=== PATIENT | female | born 1945 | race Caucasian/White ===

== ENCOUNTER 2017-02-26 11:15 | Outpatient (RCR) | payer MEDICARE, OTHER ==
--- NOTE | 2016-12-07 10:55 | PT/OT/ST INITIAL EVALUATION ---
Department of Health and Human Services Form Approved [facility] Care Financing Administration OMB No. [id number] PLAN OF CARE/ASSESSMENT FOR OUTPATIENT REHABILITATION (Complete for Initial Claims Only) 1. PATIENT'S NAME Renae Bates 2. ACC # [id number] [facility]. [facility] [id number] 4. PROVIDER NO. [id number] 5. TYPE: PT 6. PRIOR HOSPITALIZATION None 7. PRIMARY DX Right knee scope Z98.890 8. SECONDARY DX Right knee pain, right knee stiffness, right knee weakness and difficulty walking. 9. ONSET DATE Pain June 2016 Surgery 2016 10. REFERRAL DATE 11/30/2016 11. SOC. DATE 12/04/2016 12. TIME OF EVAL 1:10 p.m. to 2:08 p.[address]. [address]YS[address]IAN Dr. Becker 13. CHARGES/UNITS PT evaluation low complexity 20779 Therapeutic exercise 73527, 2 units Vasopneumatic device 62608, 1 unit 14. G CODES The lower extremity functional scale rates the patient as [id number] 71.3% limited and the goal is R5645-QM 0% limited in order to be able to ambulate without deviation and to perform volunteer work without deviation. 15. PRIOR LEVEL OF FUNCTION; PERTINENT HISTORY (Prior therapy results, reason for referral.) S: Pertinent history: Prior to therapy the patient consented to today's evaluation and treatment. The patient is a 71-year-old female referred to physical therapy by Dr. Becker to address functional limitations secondary to right knee scope performed on 11/30/2016. Mechanism of injury: The patient reports she had pain beginning in June 2016. She has had several falls. Script states the patient had a right knee scope with a partial lateral meniscectomy with chondroplasty and partial synovectomy. Primary Complaint: Right knee pain and swelling. Occupational and social history: The patient is retired. 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 Functional performance/Prior level of function: The patient has been having right knee pain and altering her movements since June 2016. The patient has had several falls prior to injury in June 2016. Pain rating: The patient rates the current pain level as 6 to 7/10 and is constant. The patient describes the pain as achy. Obstacles to delivery of care: None noted. Aggravating factors: Include getting up and down from a chair. Relieving factors: None. Diagnostic testing: None noted. Past medical history: The patient has had a history of a left wrist fracture that has healed, osteopenia, and liver autoimmune hepatitis. Past surgical history: Parathyroid surgery, left knee Lora's cyst, left wrist plate and 8 screws, hysterectomy and gallbladder surgery. Current medications: The patient lists Tylenol and baby aspirin. She states she is on a lot of medication and forgot her list and she will bring it at the next visit. Leisure activities: The patient volunteers at several different places including [employer], which has her doing all the stairs. Activity level: The patient walks the dog over 1 mile, and she likes to swim twice a week. Personal health rating: Listed as good. Patient's Goal: The patient's goal for physical therapy includes being able to walk without limping and bending her knee without pain. 16. INITIAL ASSESSMENT/SAFETY PRECAUTIONS/MEDICAL COMPLICATIONS (Level of function at start of care. Be specific, use objective measures, list problems.) O: APPEARANCE, OBSERVATION AND GAIT: The patient enters the clinic with an antalgic gait pattern and no assistive device. The patient has 2 incisions covered with Steri-Strips on her right anterior knee. There are no signs or symptoms of infection. No drainage from the incisions. The patient has 3 steps into her home with 1 rail. She has no steps inside the house and she does live with her and he will be having a knee scope this week. PALPATION: The patient is in general, tender to the right anterior knee. SPECIAL TESTS: Bilateral negative Homans of the lower extremities. RANGE OF MOTION/FLEXIBILITY: Flexion left knee 125 degrees, right knee in sitting 86 degrees. Extension left knee 0 degrees, right knee extension -4 degrees. STRENGTH: No formal manual muscle testing was performed secondary to recent surgery. Upon observation the patient's right knee rates at a 2+/5. TODAY'S TREATMENT: Included the initial PT evaluation followed by therapeutic exercise and vasopneumatic device. 17. INITIAL POC: (Specify procedures, modalities, short and termite technician goals) A: This patient presents with the diagnosis of right knee scope with functional limitations of right knee pain, right knee stiffness, right knee weakness and difficulty walking. The patient would benefit from physical therapy in order to restore proper mechanics and motor control in order to ascend and descend steps with less irritation and to be able to ambulate with proper gait pattern without using an assistive device and to restore proprioception in order to decrease her risk of falling. PROGNOSIS: The patient has a good prognosis for increased overall functional capacity with regular therapy attendance and compliance with progressive home exercise program. CONTRAINDICATIONS, PRECAUTIONS AND OBSTACLES TO DELIVERY OF CARE: No significant contraindications, precautions, or obstacles are noted at this time. GOALS: 1. The patient was rated by the Lower Extremity Functional Scale as [id number] 71.3% limited and the goal is Y1118-XQ 0% limited in order to ambulate with proper gait pattern and to return to volunteer work without deviation. 2. The patient is to have a decrease in pain of the right knee to less than or equal to 2/10 in 6 weeks in order to ambulate without deviation and to return to volunteer work without deviation. 3. The patient is to have an increase in manual muscle testing of her right knee to 4+/5 into flexion and extension in order to perform [id number] movement and volunteer work, which includes going up and down stairs without deviation. 4. The patient is have an increase of active range of motion of the right knee to 0 to 125 degrees in 6 weeks in order to return to putting on shoes and socks and volunteer work without deviation. 5. The patient is to be independent with progressive home exercise program. INFORMED CONSENT: The prognosis and goals were discussed with the patient, as well as the expected outcomes and possible risks. The patient agreed to undergo PT evaluation and further treatment. P: Plan to treat this patient 2 times a week for 6 weeks. Treatment to include modalities for pain and inflammation, manual therapy interventions, therapeutic exercise, active and passive range of motion, gait training, balance training, neural reeducation, and patient education and prescription of progressive home exercise program as tolerable. 18. FREQUENCY 2 times week 19. DURATION 6 weeks 20. FUNCTIONAL LEVEL (End of claim period) 21. PHYSICIAN SIGNATURE ? ON FILE OR ENTER HERE: 22. DATE: I certify the need for these services furnished under this plan of care and if for partial hospitalization. 23. CERTIFICATION FROM THROUGH [facility]700
[~2017-02-26 11:15] MED LIST: ACET1TAB43 PO; AMX250CIP PO; ATOR20TA PO; AZAT50TA PO; AZAT75TA PO; CALC-444 PO; CALC1TAB4 PO; CALC600T12 PO; CHOL100061 PO; CYAN500T44 PO; DOCU-34 PO; DULO30CA46 PO; DULO60CA7 PO; EFIN4SOL TP; FEXO180T84 PO; HCT25T PO; MAGN250T PO; OMEP20CA12 PO; PENT100C3 PO; POLY17PO6 PO; VIT1TABL57 PO
== END 2017-03-04 | disposition home or self-care (01) ==
LOC: PT 11:15
PROVIDERS: ATTEND Orthopaedic Surgery
DX: Z98.890 Other specified postprocedural states (principal)
CPT/HCPCS: 97016; 97110; 97140; 97161; G0283; G8978; G8979; 97014